=== PATIENT | male | born 1975 | race Caucasian/White ===

== ENCOUNTER 2017-05-12 18:36 | Emergency (ER) | payer OTHER ==
[2017-05-12 18:41] VITALS: BP 129/75; PULSE 64; TEMP 98.3; BMI 26.7
--- NOTE | 2017-05-12 18:45 | PDOC ---
History of Present Illness - General Chief Complaint: Head/Neck problem Stated Complaint: FACE TWISTED Time Seen by Provider: 05/12/17 18:43 History Source: Patient Exam Limitations: No Limitations - History of Present Illness Initial Comments: CHIEF COMPLAINT: 41 y/o afebrile male with no significant PMH c/o inability to close left eye or mouth since yesterday. HISTORY OF PRESENT ILLNESS: The patient states at 1pm yesterday afternoon he noticed that he couldn't shut his left eye all the way and when he tried to drink the left side of his mouth wouldn't close all the way either. He states he went along with his day but when he woke up this morning and had the same symptoms he decided to come in. He denies f/c, HOWARD, dizziness, neck pain, changes in vision/hearing, slurred speech, difficulty reading, weakness on one side of his body, difficulty swallowing, facial numbness, n/v/d, CP, SOB, abd pain, numbness/tingling in extremities. Vital signs on arrival are within normal limits. REVIEW OF SYSTEMS: GENERAL/CONSTITUTIONAL: No fever/chills. No weakness. No weight change. HEAD, EYES, EARS, NOSE AND THROAT: No change in vision. No ear pain or discharge. No sore throat. +inability to close left eye. +left mouth drooping. CARDIOVASCULAR: No chest pain or shortness of breath. RESPIRATORY: No cough, wheezing, or hemoptysis. GASTROINTESTINAL: No abd pain, nausea, vomiting, diarrhea. GENITOURINARY: No dysuria, frequency, or change in urination. MUSCULOSKELETAL: No joint or muscle swelling or pain. No neck or back pain. SKIN: No rash or easy bruising. NEUROLOGIC: No headache, vertigo, loss of consciousness, or loss of sensation. PHYSICAL EXAM: GENERAL: The patient is awake, alert, and fully oriented, in no acute distress. He is ambulatory with normal gait, very well appearing, in NAD or obvious discomfort. HEAD: Normal with no signs of trauma. ENT: Pupils equal, round and reactive to light, extraocular movements intact, sclera anicteric, conjunctiva clear. LUNGS: Clear to auscultation bilaterally. Normal excursion. No respiratory distress or use of accessory muscles. CV: RRR, S1/S2, no MRG. Cap refill < 2 sec. ABDOMEN: Soft, non-distended, non-tender even to deep palpation, no hepatomegaly or splenomegaly, no masses. EXTREMITIES: Normal range of motion, no edema. NEUROLOGICAL: Cannot furrow brow on left side. Flatened nasolabial fold left side. Cannot close left eye completely. Normal speech, normal gait. CN II-XII grossly intact. No dysarthria. No ataxia. Normal finger to nose. Normal rapid alternating movements. Sensory intact and equal b/l face. Equal mud mill tender strength b/l. No upper extremity weakness. No lower extremity weakness. PSYCH: Normal mood, normal affect. SKIN: Warm, dry, normal turgor, no rashes or lesions noted. NIH Stroke Scale - Last Known Well Date/Time & Onset Date Last Known Well: 05/11/17 Time Last Known Well: 13:00 - Initial Evaluation Level of consciousness: Alert Ask patient the month and their age: Answers both correctly Ask patient to open & close eyes; make fist and let go: Obeys both correctly Best gaze (horizontal eye movement): Normal Visual field testing: No visual field loss Facial paresis (Show teeth/raise eyebrows/close eyes tight): Minor paralysis ( flattened nasolabial fold, asymmetry on smiling) Motor Function: Left Arm: Normal Motor Function: Right Arm: Normal (extends arm 90 (or 45) degrees for 10 seconds without drift Motor Function: Left Leg: Normal (extends leg 30 degrees for 5 seconds without drift) Motor Function: Right Leg: Normal (extends leg 30 degrees for 5 seconds without drift) Limb Ataxia: No ataxia Sensory(Use pinprick test arms,legs,trunk,face/side to side): Normal Best language (Describe picture, name items, read sentences): No Aphasia Dysarthria (read several words): Normal articulation Extinction and Inattention: No abnormality - Total Score NIH Stroke Scale Score: 1 Past History - Past Medical History Allergies/Adverse Reactions: Allergies Allergy/AdvReac Type Severity Reaction Status Date / Time No Known Allergies Allergy Verified 05/12/17 18:41 Home Medications: Ambulatory Orders Erythromycin 0.5% Eye Ointment [Erythromycin 0.5% Eye Ointment -] 1 applic OU BID #1 tube 02/05/15 Prednisone [Deltasone -] 60 mg PO DAILY #21 tablet 05/12/17 Valacyclovir HCl [Valtrex -] 1,000 mg PO TID #21 tablet 05/12/17 Other medical history: NONE - Surgical History Appendectomy: Yes - Psycho/Social/Smoking Cessation Hx Anxiety: No Suicidal Ideation: No Smoking History: Never smoked Hx Alcohol Use: No Drug/Substance Use Hx: No Substance Use Type: None *Physical Exam - Vital Signs Last Vital Signs Temp Pulse Resp BP Pulse Ox 98.3 F 64 20 129/75 97 05/12/17 18:38 05/12/17 18:38 05/12/17 18:38 05/12/17 18:38 05/12/17 18:38 Medical Decision Making - Medical Decision Making A/P: 41 y/o afebrile male with signs and symptoms of lopez's palsy. Will discharge to home with Rx for Prednisone and Valacyclovir. Instructed the patient to take as prescribed and return to the ER with any worsening or concerning symptoms. The patient verbalizes understanding of all instructions, has no further questions and is awaiting discharge. *DC/Admit/Observation/Transfer Diagnosis at time of Disposition: Lopez's palsy - Discharge Dispostion Disposition: HOME Condition at time of disposition: Good - Prescriptions Prescriptions: Prednisone [Deltasone -] 60 mg PO DAILY #21 tablet Valacyclovir HCl [Valtrex -] 1,000 mg PO TID #21 tablet - Patient Instructions Printed Discharge Instructions: DI for Lopez's Palsy Additional Instructions: Discharge Instructions: -2 prescriptions have been sent to your pharmacy; please start taking today and take as prescribed -Return to the ER with any worsening or concerning symptoms -2 recetas renteria sido enviadas a [place]; Por favor comience a sofi hoy y tome moises prescrito -Vuelva a la peggy de emergencias con cualquier empeoramiento o con respecto a los sntomas Print Language: MOROCCAN
== END 2017-05-12 19:52 | disposition home or self-care (01) ==
LOC: JERFT 18:36
DX: G51.0 Bell's palsy (principal)
CPT/HCPCS: 99281-25

== ENCOUNTER 2018-11-11 18:09 | Emergency (ER) | payer SELFPAY ==
[2018-11-11 18:45] VITALS: BP 115/71; PULSE 69; TEMP 97.7; BMI 27.7
--- NOTE | 2018-11-11 20:24 | PDOC ---
History of Present Illness - General Chief Complaint: Pain Stated Complaint: PAIN Time Seen by Provider: 11/11/18 20:02 History Source: Patient Exam Limitations: No Limitations - History of Present Illness Initial Comments: CHIEF COMPLAINT: 42 y/o afebrile male c/o left knee pain x 1 week. 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 He states last week while at work the back of his left knee started hurting. He has not taken anything for pain. He denies trauma to leg, calf pain, back pain, redness/warmth to affected area, smoking history, recent travel. Vital signs on arrival are within normal limits. REVIEW OF SYSTEMS: GENERAL/CONSTITUTIONAL: No fever MUSCULOSKELETAL: +pain to back of left knee. No neck or back pain. SKIN: No rash or easy bruising. NEUROLOGIC: No headache, vertigo, loss of consciousness, or loss of sensation. PHYSICAL EXAM: VITAL_SIGNS: within normal limits GENERAL_APPEARANCE: alert, cooperative, mild obvious discomfort. Patient is ambulatory with mild limp MENTAL_STATUS: speech clear, oriented X 3, responds appropriately to questions. NEURO: motor intact and sensory intact in injured extremity. EXTREMITIES: FROM of left knee. No swelling, erythema or TTP of left knee. TTP of posterior left knee with minimal swelling. No calf pain left leg. Negative oliver's sign left calf. No swelling, erythema, warmth, TTP of left calf or left thigh. SKIN: warm, dry, good color. Past History - Past Medical History Allergies/Adverse Reactions: Allergies Allergy/AdvReac Type Severity Reaction Status Date / Time No Known Allergies Allergy Verified 11/11/18 18:41 Home Medications: Ambulatory Orders Acetaminophen [Tylenol] 650 mg PO QID 11/11/18 COPD: No - Surgical History Appendectomy: Yes - Suicide/Smoking/Psychosocial Hx Smoking History: Never smoked Hx Alcohol Use: No Drug/Substance Use Hx: No Substance Use Type: None *Physical Exam - Vital Signs Last Vital Signs Temp Pulse Resp BP Pulse Ox 97.7 F 69 18 115/71 96 11/11/18 18:43 11/11/18 18:43 11/11/18 18:43 11/11/18 18:43 11/11/18 18:43 Moderate Sedation - Procedure Monitoring Vital Signs: Procedure Monitoring Vital Signs Temperature 97.7 F 11/11/18 18:43 Pulse Rate 69 11/11/18 18:43 Respiratory Rate 18 11/11/18 18:43 Blood Pressure 115/71 11/11/18 18:43 O2 Sat by Pulse Oximetry (%) 96 11/11/18 18:43 Medical Decision Making - Medical Decision Making A/P: 42 y/o male with tidwell's cyst. No need for imaging at this time. Will give IM toradol for pain swelling. Will give ANNE MARIE bandage, supportive care instructions and Ortho referral. Patient instructed to return to the ER with any worsening or concerning symptoms. The patient verbalizes understanding of all instructions, has no further questions and is awaiting discharge. 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 Arredondo tomorrow to schedule follow up appointment Instrucciones de descarga: -Tienes un quiste de panadero detrs de tu rodilla izquierda. -Radha tipo de lesin es comn para los carpinteros o cualquier persona que se agacha y se arrodilla mucho -Por favor, tome 600 mg de Ibuprofeno sin receta cada 6 horas para el dolor con alimentos si es necesario -Utilizar el vendaje ANNE MARIE para mayor comodidad. -Seguir las instrucciones de ARROZ. -Llame al Dr. Arnulfo mojica para programar heidi haroon de seguimiento. Print Language: [place] R[place] - Post Discharge Activity Forms/Work/School Notes: Back to Work
[2018-11-11] MEDS ORDERED: KETOROLAC TROMETHAMINE 60 MG/2 ML VIAL IM ONE (20:48)
[2018-11-11] MEDS ORDERED: KETOROLAC TROMETHAMINE 60 MG/2 ML VIAL ONE (20:50)
== END 2018-11-11 20:59 | disposition home or self-care (01) ==
LOC: JERFT 18:09
PROC: 3E0233Z Introduction of Anti-inflammatory into Muscle, Percutaneous Approach (ICD-10-PCS; principal; 2018-11-11)
DX: M71.22 Synovial cyst of popliteal space [Baker], left knee (principal)
CPT/HCPCS: 99281-25